=== PATIENT | male | born 1930 | race Caucasian/White ===

== ENCOUNTER 2016-10-16 05:38 | Emergency (ER) | payer OTHER ==
[2016-10-16 05:46] VITALS: BP 138/53; PULSE 62; RESP 14; TEMP 97.3; O2SAT 97
[2016-10-16] MEDS ORDERED: HYDROCODONE/APAP 5/325 TAB PO ONE (06:07)
--- NOTE | 2016-10-16 06:13 | EDPHY ---
H & P Stated Complaint: right upper toothache Time Seen by Provider: 10/16/16 05:59 HPI/ROS: Chief complaint toothache HPI: 86-year-old male presenting with toothache which started yesterday. Patient states he has had extensive dental work done in the past and this has pain in his right upper gum line. Pain radiates to beneath his right eye. Is about a 7/10. He did take some Tylenol yesterday afternoon and last evening. He does have a local dentist. It does hurt to chew. Has not had any temporal headaches. No skin rash. No numbness or tingling. No sharp shooting pains. Is described as a dull ache. No left-sided pain. No vision changes or tearing. No mandibular pain. He was scheduled to fly to [place] today. ROS: 10 point Review of Systems is negative except as noted in the HPI. Past medical history: Insomnia Medications: Gabapentin, melatonin Allergies: Horse serum Physical exam: Gen: Awake, Alert, No Distress HEENT: There is no temporal artery tenderness. There is no tenderness along the facial nerve. Nose: no rhinorrhea Eyes: PERRLA, EOMI, no injection, no discharge Mouth: Moist mucosa he has tenderness along the upper lateral gingival line at his 1st and 2nd premolars. There is no pointing. There is no area of fluctuance. There is no erythema. He has mild tooth tenderness to percussion. Neck: Supple, no JVD Skin: no rash Neuro: CN II-XII intact, Sensation grossly intact, Strength 5/5 in bilateral upper and lower extremities - Personal History Current Tetanus/Diphtheria Vaccine: Unsure Current Tetanus Diphtheria and Acellular Pertussis (TDAP): Unsure Tetanus Vaccine Date: 1971 - Medical/Surgical History Hx Asthma: No Hx Chronic Respiratory Disease: No Hx Diabetes: No Hx Cardiac Disease: Yes Hx Renal Disease: No Hx Cirrhosis: No Hx Alcoholism: No Hx HIV/AIDS: No Hx Splenectomy or Spleen Trauma: No Other PMH: CAD, aortic insufficiency, spinal stenosis, lami, bilat knee operations X5, carpal tunnel release, - Social History Smoking Status: Former smoker Constitutional: Initial Vital Signs Temperature (C) 36.3 C 10/16/16 05:44 Heart Rate 62 10/16/16 05:44 Respiratory Rate 14 10/16/16 05:44 Blood Pressure 138/53 H 02/27/17 05:44 O2 Sat (%) 97 10/16/16 05:44 O2 Delivery Mode Room Air Allergies/Adverse Reactions: CRAB CAKES Allergy (Severe, Uncoded 02/26/16 13:20) Anaphylaxis HORSE SERUM Allergy (Severe, Uncoded 02/26/16 13:20) Anaphylaxis Home Medications: Medication Instructions Recorded Aspirin [Aspirin 81mg (*)] 81 mg PO DAILY@08 05/24/15 Carvedilol [Coreg (*)] 6.25 mg PO BIDMEAL 05/24/15 Levothyroxine [Synthroid 150 mcg 150 mcg PO DAILY06 05/24/15 (*)] Multivitamins [Multivitamin (*)] 1 each PO DAILY 05/24/15 Pyridoxine HCl [Vitamin B-6 100 mg 100 mg PO DAILY 05/24/15 (*)] traZODone 10/16/16 Medical Decision Making ED Course/Re-evaluation: Patient is presenting with pain which I believe is dental in origin. He has got some tenderness along the going to on the upper right hand side with some tenderness to percussion of his tooth. There is no fluctuance. He does have a local dentist. I have offered to perform a dental block or a regional nerve block on him and he is declining this at this time. He would like some Vicodin. I will given this. I have also offered to start him on antibiotics. He would prefer to follow up with his dentist. They will call to make an appoint with her dentist later this morning. I have offered to give the mother resources further dentist but they feel that they can get in to see their dentist today will do so. Departure - Departure Disposition: Home, Routine, Self-Care Clinical Impression: Toothache Condition: Good Instructions: Toothache (ED) Additional Instructions: Follow up with your dentist today. Referrals: Home Sullivan MD [Primary Care Provider] - As per Instructions
== END 2016-10-16 06:20 | disposition home or self-care (01) ==
DX: K08.89 Other specified disorders of teeth and supporting structures (principal); I25.10 Atherosclerotic heart disease of native coronary artery without angina pectoris; Z87.891 Personal history of nicotine dependence; Z79.82 Long term (current) use of aspirin

== ENCOUNTER → 2016-11-07 | Outpatient (CLI) | payer OTHER | LOC: BHFA 14:00 | PROVIDERS: ATTEND Internal Medicine Cardiovascular Disease | DX: R00.1 Bradycardia, unspecified (principal); R55 Syncope and collapse ==

== ENCOUNTER → 2016-12-03 | Outpatient (CLI) | payer OTHER | LOC: FCPNEURO 23:11 | PROVIDERS: ATTEND Psychiatry & Neurology Sleep Medicine | DX: G47.33 Obstructive sleep apnea (adult) (pediatric) (principal); G47.31 Primary central sleep apnea ==

== ENCOUNTER → 2016-12-14 | Outpatient (CLI) | payer OTHER | LOC: FIMAGING 13:03 | PROVIDERS: ATTEND Family Medicine Geriatric Medicine | DX: R05 Cough (principal); R50.9 Fever, unspecified; I25.10 Atherosclerotic heart disease of native coronary artery without angina pectoris ==

== ENCOUNTER 2017-01-03 17:03 | Observation (INO) | payer OTHER ==
[2017-01-03] MEDS ORDERED: NS 1,000 ML IV ONE (17:11)
--- NOTE | 2017-01-03 17:11 | EDPHY ---
H & P HPI/ROS: HPI CHIEF COMPLAINT: Dizziness HISTORY OF PRESENT ILLNESS: This patient very pleasant 86-year-old male, significant past medical history for AFib, obstructive sleep apnea, carotid stenosis, TIA, spinal stenosis, no history of vertigo who presents to the emergency room by private vehicle with 6 hours of vertiginous type symptoms. It is worse when he lifts his head up and moves his head side to side. Also tells me gets very dizzy sensation with the room is spinning when he goes to ambulate. He 1st noted this around an hour before noon. The symptoms have persisted every time he goes to walk he gets dizzy. Denies chest pain or shortness of breath. Denies blurry vision double vision. Denies nausea. States with head position movements he gets very dizzy. No ringing in the ears. Denies headache. Denies focal weakness. Past Medical History: Spinal stenosis, obstructive sleep apnea, AFib, TIA, carotid disease, hyperlipidemia Past Surgical History: Carotid endarterectomy Social History: Denies daily use of drugs alcohol tobacco products, lives locally, at bedside Family History: Noncontributory ROS REVIEW OF SYSTEMS: A comprehensive 10 point review of systems is otherwise negative aside from elements mentioned in the history of present illness. Exam Constitutional appears well nontoxic, triage nursing summary reviewed, vital signs reviewed, awake/alert. Eyes normal conjunctivae and sclera, EOMI, PERRLA. HENT normal inspection, atraumatic, moist mucus membranes, no epistaxis, neck supple/ no meningismus, no raccoon eyes. Respiratory clear to auscultation bilaterally, normal breath sounds, no respiratory distress, no wheezing. Cardiovascular rate normal, regular rhythm, no murmur, no edema, distal pulses normal. Gastrointestinal soft, non-tender, no rebound, no guarding, normal bowel sounds, no distension, no pulsatile mass. Genitourinary no CVA tenderness. Musculoskeletal no midline vertebral tenderness, full range of motion, no calf swelling, no tenderness of extremities, no meningismus, good pulses, neurovascularly intact. Skin pink, warm, & dry, no rash, skin atraumatic. Neurologic with head positional changes he gets very dizzy. no focal neuro deficit, awake, alert and oriented x 3, AAOx3, moves all 4 extremities equally, motor intact, sensory intact, CN II-XII intact, normal cerebellar, normal vision , normal speech. Psychiatric normal mood/affect. Heme/Lymph/Immune no lymphadenopathy. 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 Re-evaluate. Rule out ACS, rule out stroke. Re-evaluation: EKG interpretation by me on record in CAPPTURE system. Impression time of EKG , this is sinus rhythm rate of 55 first-degree AV block with NV interval 220. Right bundle-branch block present. Otherwise no acute ischemic change on EKG specifically no ST elevation, ST depression or significant T-wave abnormalities. When compared to EKG 01/30/2016 very similar morphology. Right bundle-branch block present. And first-degree AV block. CT scan of the head without IV contrast . The results of the study are negative for acute stroke, bleed, subdural The study was read by Dr. Najera. I viewed the images myself on the PACS system. ED x-ray chest one view: Negative for acute cardiopulmonary disease. 1812: Had lengthy discussion with this patient and his recommend hospital admission for dizziness which is improved with IV fluids and meclizine however patient does have a positive troponin. He has no chest pain or shortness of breath. Chest x-ray and CT scan reviewed. Blood work reviewed. EKG shows no acute ischemia similar EKG compared to old EKG in January. No evidence of ACS. However given his age of 86 years of age positive troponin dizziness recommend hospital admission. Spoke with the hospitalist service Dr. Almendarez agrees to admit this patient. Source: Patient - Personal History Tetanus Vaccine Date: 1971 - Medical/Surgical History Hx Asthma: No Hx Chronic Respiratory Disease: No Hx Diabetes: No Hx Cardiac Disease: Yes Hx Renal Disease: No Hx Cirrhosis: No Hx Alcoholism: No Hx HIV/AIDS: No Hx Splenectomy or Spleen Trauma: No Other PMH: CAD, aortic insufficiency, spinal stenosis, lami, bilat knee operations X5, carpal tunnel release, - Social History Smoking Status: Former smoker Constitutional: Initial Vital Signs Temperature (C) 36.6 C 01/03/17 17:05 Heart Rate 52 L 01/03/17 17:05 Respiratory Rate 18 01/03/17 17:05 Blood Pressure 144/67 H 01/03/17 17:05 O2 Sat (%) 97 01/03/17 17:05 O2 Delivery Mode Room Air Allergies/Adverse Reactions: CRAB CAKES Allergy (Severe, Uncoded 01/03/17 17:12) Anaphylaxis HORSE SERUM Allergy (Severe, Uncoded 01/03/17 17:12) Anaphylaxis Home Medications: Medication Instructions Recorded Aspirin [Aspirin 81mg (*)] 81 mg PO DAILY@08 05/24/15 Carvedilol [Coreg (*)] 6.25 mg PO BIDMEAL 05/24/15 Levothyroxine [Synthroid 150 mcg 150 mcg PO DAILY06 05/24/15 (*)] traZODone 10/16/16 Melatonin [Melatonin 3 MG (*)] 3 mg PO HS 01/03/17 Medical Decision Making - Data Points Laboratory Results: Laboratory Results 01/03/17 17:20 01/03/17 01:11 01/03/17 01/03/17 01/03/17 17:20 01:11 01:11 WBC 5.17 10^3/uL 10^3/uL (3.80-9.50) RBC 4.41 10^6/uL 10^6/uL (4.40-6.38) Hgb 13.2 g/dL L g/dL (13.7-17.5) Hct 39.3 % L % (40.0-51.0) MCV 89.1 fL fL (81.5-99.8) MCH 29.9 pg pg (27.9-34.1) MCHC 33.6 g/dL g/dL (32.4-36.7) RDW 13.8 % % (11.5-15.2) Plt Count 215 10^3/uL 10^3/uL (150-400) MPV 8.9 fL fL (8.7-11.7) Neut % (Auto) 59.6 % % (39.3-74.2) Lymph % (Auto) 16.8 % % (15.0-45.0) [place] % (Auto) 11.0 % % (4.5-13.0) Eos % (Auto) 11.6 % H % (0.6-7.6) Baso % (Auto) 0.6 % % (0.3-1.7) Nucleat RBC Rel Count 0.0 % % (0.0-0.2) Absolute Neuts (auto) 3.08 10^3/uL 10^3/uL (1.70-6.50) Absolute Lymphs (auto) 0.87 10^3/uL L 10^3/uL (1.00-3.00) Absolute Monos (auto) 0.57 10^3/uL 10^3/uL (0.30-0.80) Absolute Eos (auto) 0.60 10^3/uL H 10^3/uL (0.03-0.40) Absolute Basos (auto) 0.03 10^3/uL 10^3/uL (0.02-0.10) Absolute Nucleated RBC 0.00 10^3/uL 10^3/uL (0-0.01) Immature Gran % 0.4 % % (0.0-1.1) Immature Gran # 0.02 10^3/uL 10^3/uL (0.00-0.10) PT 14.2 SEC SEC (12.0-15.0) INR 1.11 (0.83-1.16) APTT 29.4 SEC SEC (23.0-38.0) Sodium 139 mEq/L mEq/L (134-144) Potassium 5.1 mEq/L mEq/L (3.5-5.2) Chloride 104 mEq/L mEq/L (97-110) Carbon Dioxide 27 mEq/l mEq/l (22-31) Anion Gap 8 mEq/L mEq/L (8-16) BUN 17 mg/dL mg/dL (7-23) Creatinine 1.1 mg/dL mg/dL (0.7-1.3) Estimated GFR > 60 Glucose 110 mg/dL H mg/dL (70-100) Calcium 9.3 mg/dL mg/dL (8.5-10.4) Magnesium 2.1 mg/dL mg/dL (1.6-2.3) Total Bilirubin 1.0 mg/dL mg/dL (0.1-1.4) Conjugated Bilirubin 0.3 mg/dL mg/dL (0.0-0.5) Unconjugated Bilirubin 0.7 mg/dL mg/dL (0.0-1.1) AST 26 IU/L IU/L (17-59) ALT 33 IU/L IU/L (21-72) Alkaline Phosphatase 53 IU/L IU/L (38-126) Creatine Kinase 110 IU/L IU/L (0-224) CK-MB (CK-2) Fraction 2.88 ng/mL ng/mL (0-3.19) Troponin I 0.045 ng/mL H ng/mL (0-0.034) NT-Pro-B Natriuret Pep 441 pg/mL pg/mL (0-450) Total Protein 6.6 g/dL g/dL (6.3-8.2) Albumin 3.9 g/dL g/dL (3.5-5.0) Lipase 102.0 IU/L IU/L (23-300) Medications Given: Discontinued Medications Sodium Chloride (Ns) 1,000 mls @ 0 mls/hr IV ONCE ONE PRN Reason: Wide Open Stop: 01/03/17 17:12 Last Admin: 01/03/17 17:18 Dose: 1,000 mls Meclizine HCl (Meclizine Hcl) 25 mg PO EDNOW ONE Stop: 01/03/17 17:21 Last Admin: 01/03/17 17:25 Dose: 25 mg Departure - Departure Disposition: [facility] In[facility] Acute Clinical Impression: Dizziness, Troponin level elevated Condition: Fair Referrals: Home Sullivan MD [Primary Care Provider] - As per Instructions
--- NOTE | 2017-01-03 17:15 | CPEKG ---
Heart Rate: 55 RR Interval: 1091 P-R Interval: 220 QRSD Interval: 138 QT Interval: 492 QTC Interval: 471 P [place]: 33 QRS [place]: -13 T Wave [place]: 13 EKG Severity - ABNORMAL ECG - EKG Impression: SINUS RHYTHM EKG Impression: FIRST DEGREE AV BLOCK EKG Impression: RIGHT BUNDLE BRANCH BLOCK Electronically Signed By: Jorge Renteria 03-Jan-2017 21:25:52
[2017-01-03] MEDS ORDERED: MECLIZINE HCL 25 MG TAB PO ONE (17:20)
[2017-01-03 17:30] LABS: % IMMATURE GRANULYOCYTES 0.4 % (0.0-1.1); ABSOLUTE IMMATURE GRANULOCYTES 0.02 10^3/uL (0.00-0.10); ADD DIFF? NO; ADD MORPH? NO; ADD SCAN? NO; ATYPICAL LYMPHOCYTE FLAG 30 (0-99); FRAGMENT RBC FLAG 0 (0-99); HEMATOCRIT 39.3 % (40.0-51.0); HEMOGLOBIN 13.2 g/dL (13.7-17.5); LEFT SHIFT FLG 0 (0-99); LIPEMIA HEMOLYSIS FLAG 80 (0-99); MEAN CELL HEMOGLOBIN 29.9 pg (27.9-34.1); MEAN CELL HEMOGLOBIN CONCENTR. 33.6 g/dL (32.4-36.7); MEAN CELL VOLUME 89.1 fL (81.5-99.8); MEAN PLATELET VOLUME 8.9 fL (8.7-11.7); PLATELET CLUMPS FLAG 0 (0-99); PLATELET COUNT 215 10^3/uL (150-400); RED BLOOD CELL COUNT 4.41 10^6/uL (4.40-6.38); RED CELL DISTRIBUTION WIDTH 13.8 % (11.5-15.2)
[2017-01-03 17:38] LABS: INR 1.11 (0.83-1.16); PROTIME(PATIENT) 14.2 SEC (12.0-15.0)
[2017-01-03 17:39] LABS: ALANINE AMINOTRANSFERASE 33 IU/L (21-72); ALBUMIN 3.9 g/dL (3.5-5.0); ALKALINE PHOSPHATASE 53 IU/L (38-126); ANION GAP 8 mEq/L (8-16); APTT 29.4 SEC (23.0-38.0); ASPARTATE AMINOTRANSFERASE 26 IU/L (17-59); BILIRUBIN-CONJUGATED 0.3 mg/dL (0.0-0.5); BILIRUBIN-UNCONJUGATED 0.7 mg/dL (0.0-1.1); CALCIUM 9.3 mg/dL (8.5-10.4); CARBON DIOXIDE 27 mEq/l (22-31); CHLORIDE 104 mEq/L (97-110); CREATININE 1.1 mg/dL (0.7-1.3); GLOMERULAR FILTRATION RATE > 60; GLUCOSE 110 mg/dL (70-100); MAGNESIUM 2.1 mg/dL (1.6-2.3); POTASSIUM 5.1 mEq/L (3.5-5.2); SODIUM 139 mEq/L (134-144); TOTAL PROTEIN 6.6 g/dL (6.3-8.2)
[2017-01-03 17:51] LABS: CREATINE KINASE-MB FRACTION 2.88 ng/mL (0-3.19); TROPONIN I 0.045 ng/mL (0-0.034)
[2017-01-03] MEDS ORDERED: ONDANSETRON DISINTEGRATING 4 MG TAB PO PRN (18:41)
[2017-01-03] MEDS ORDERED: MECLIZINE HCL 25 MG TAB PO PRN (18:41)
[2017-01-03] MEDS ORDERED: ONDANSETRON 4 MG/2 ML VIAL IVP PRN (18:41)
[2017-01-03] MEDS ORDERED: ACETAMINOPHEN 325 MG TAB PO PRN (18:41)
--- NOTE | 2017-01-03 18:54 | PDGENHP ---
History and Physical - Chief Complaint dizzyness - History of Present Illness This patient is an 86-year-old male with a past medical history for AFib, obstructive sleep apnea, carotid stenosis, TIA, spinal stenosis, vertigo who has had vertigo like symptoms since 0800 this morning. Although he has had vertigo before, these sx's are worse and have lasted more than the typical few minutes which are his norm. The sx's were worse with head movement. He denies chest pain or shortness of breath. Denies blurry vision double vision. Denies nausea. States with head position movements he gets very dizzy. No ringing in the ears. Denies headache. Denies focal weakness. Denies palpitations or leg swelling. He does not report focal weakness He was given IVF and Meclizine in the E.D. with resolution of his sx's. Unfortunately, a troponin was indeterminate and we have been asked to admit for further w/u. Upon further questions, he reports intermittent dizziness and several near syncope events during the previous months. He also reports bradycardia and upon my review of his VS his HR is in the low 50's. He is on Carvedilol. His therapist physical is Dr. Srikanth Almendarez who he sees once yearly and has an appointment in February. A CT of the brain was no consistent with acute findings. EKG (personally reviewed) shows first degree AV block and RBBB which is chronic. A CXR ( personally reviewed) is unremarkable. Past Medical History: Spinal stenosis, obstructive sleep apnea, AFib, TIA, carotid disease, hyperlipidemia, cardiac stents x 1 15 years ago, Hypothyroidism , Insomnia Past Surgical History: Carotid endarterectomy, cardiac cath with stent placement Social History: Denies daily use of drugs alcohol or tobacco products, lives locally. Family History: Noncontributory History Information - Allergies/Home Medication List Allergies/Adverse Reactions: CRAB CAKES Allergy (Severe, Uncoded 01/03/17 17:12) Anaphylaxis HORSE SERUM Allergy (Severe, Uncoded 01/03/17 17:12) Anaphylaxis Home Medications: Aspirin [Aspirin 81mg (*)] 81 mg PO DAILY@08 05/24/15 [Last Taken 05/23/15] Carvedilol [Coreg (*)] 6.25 mg PO BIDMEAL 05/24/15 [Last Taken 06/15/15] Levothyroxine [Synthroid 150 mcg (*)] 150 mcg PO DAILY06 05/24/15 [Last Taken ] traZODone 10/16/16 [Last Taken Unknown] Melatonin [Melatonin 3 MG (*)] 3 mg PO HS 01/03/17 [Last Taken Unknown] I have personally reviewed and updated: medical history, social history, surgical history - Social History Smoking Status: Former smoker Review of Systems ROS: 10pt was reviewed & negative except for what was stated in HPI & below Physical Exam Temp Pulse Resp BP Pulse Ox 36.6 C 52 L 18 144/67 H 97 01/03/17 17:05 01/03/17 17:05 01/03/17 17:05 01/03/17 17:05 01/03/17 17:05 Constitutional: no apparent distress, appears nourished, not in pain Eyes: PERRL, EOMI Ears, Nose, Mouth, Throat: moist mucous membranes, poor dentition, No dry mucous membranes Cardiovascular: regular rate and rhythym, no murmur, rub, or gallop, No systolic murmur, No irregularly irregular, No JVD Respiratory: no respiratory distress, no rales or rhonchi, clear to auscultation , No reduced air movement Gastrointestinal: normoactive bowel sounds, soft, non-tender abdomen, no palpable masses, No tenderness Genitourinary: no bladder fullness Skin: warm, normal color Neurologic: AAOx3, sensation intact bilaterally, CN II-XII Intact, No weakness, No facial droop Psychiatric: interacting appropriately, not anxious, not encephalopathic Lab Data & Imaging Review 01/03/17 17:20 01/03/17 01:11 WBC 5.17 10^3/uL (3.80-9.50) 01/03/17 17:20 RBC 4.41 10^6/uL (4.40-6.38) 01/03/17 17:20 Hgb 13.2 g/dL (13.7-17.5) L 01/03/17 17:20 Hct 39.3 % (40.0-51.0) L 01/03/17 17:20 MCV 89.1 fL (81.5-99.8) 01/03/17 17:20 MCH 29.9 pg (27.9-34.1) 01/03/17 17:20 MCHC 33.6 g/dL (32.4-36.7) 01/03/17 17:20 RDW 13.8 % (11.5-15.2) 01/03/17 17:20 Plt Count 215 10^3/uL (150-400) 01/03/17 17:20 MPV 8.9 fL (8.7-11.7) 01/03/17 17:20 Neut % (Auto) 59.6 % (39.3-74.2) 01/03/17 17:20 Lymph % (Auto) 16.8 % (15.0-45.0) 01/03/17 17:20 [place] % (Auto) 11.0 % (4.5-13.0) 01/03/17 17:20 Eos % (Auto) 11.6 % (0.6-7.6) H 01/03/17 17:20 Baso % (Auto) 0.6 % (0.3-1.7) 01/03/17 17:20 Nucleat RBC Rel Count 0.0 % (0.0-0.2) 01/03/17 17:20 Absolute Neuts (auto) 3.08 10^3/uL (1.70-6.50) 01/03/17 17:20 Absolute Lymphs (auto) 0.87 10^3/uL (1.00-3.00) L 01/03/17 17:20 Absolute Monos (auto) 0.57 10^3/uL (0.30-0.80) 01/03/17 17:20 Absolute Eos (auto) 0.60 10^3/uL (0.03-0.40) H 01/03/17 17:20 Absolute Basos (auto) 0.03 10^3/uL (0.02-0.10) 01/03/17 17:20 Absolute Nucleated RBC 0.00 10^3/uL (0-0.01) 01/03/17 17:20 Immature Gran % 0.4 % (0.0-1.1) 01/03/17 17:20 Immature Gran # 0.02 10^3/uL (0.00-0.10) 01/03/17 17:20 PT 14.2 SEC (12.0-15.0) 01/03/17 01:11 INR 1.11 (0.83-1.16) 01/03/17 01:11 APTT 29.4 SEC (23.0-38.0) 01/03/17 01:11 Sodium 139 mEq/L (134-144) 01/03/17 01:11 Potassium 5.1 mEq/L (3.5-5.2) 01/03/17 01:11 Chloride 104 mEq/L (97-110) 01/03/17 01:11 Carbon Dioxide 27 mEq/l (22-31) 01/03/17 01:11 Anion Gap 8 mEq/L (8-16) 01/03/17 01:11 BUN 17 mg/dL (7-23) 01/03/17 01:11 Creatinine 1.1 mg/dL (0.7-1.3) 01/03/17 01:11 Estimated GFR > 60 01/03/17 01:11 Glucose 110 mg/dL (70-100) H 01/03/17 01:11 Calcium 9.3 mg/dL (8.5-10.4) 01/03/17 01:11 Magnesium 2.1 mg/dL (1.6-2.3) 01/03/17 01:11 Total Bilirubin 1.0 mg/dL (0.1-1.4) 01/03/17 01:11 Conjugated Bilirubin 0.3 mg/dL (0.0-0.5) 01/03/17 01:11 Unconjugated Bilirubin 0.7 mg/dL (0.0-1.1) 01/03/17 01:11 AST 26 IU/L (17-59) 01/03/17 01:11 ALT 33 IU/L (21-72) 01/03/17 01:11 Alkaline Phosphatase 53 IU/L (38-126) 01/03/17 01:11 Creatine Kinase 110 IU/L (0-224) 01/03/17 01:11 CK-MB (CK-2) Fraction 2.88 ng/mL (0-3.19) 01/03/17 01:11 Troponin I 0.045 ng/mL (0-0.034) H 01/03/17 01:11 NT-Pro-B Natriuret Pep 441 pg/mL (0-450) 01/03/17 01:11 Total Protein 6.6 g/dL (6.3-8.2) 01/03/17 01:11 Albumin 3.9 g/dL (3.5-5.0) 01/03/17 01:11 Lipase 102.0 IU/L (23-300) 01/03/17 01:11 Assessment & Plan Assessment: #Vertigo, likely BPV #?Dehydration, s/p IVF, likely resolved. Will hold off on additional fluid for now #Bradycardia in a pt with hx of Afib, chronically on Coreg #Indeterminate troponin with no chest pain #Insomnia #Hypothyroidism #[place], not on CPAP Plan: Admit serial trops, telemetry, TTE. He sees Dr. Almendarez with Cardiology. A formal consult has not been placed and he may need one. In regards to the Vertigo, this sounds like BPH and has resolved with IVF and Meclizine. It is, however, concerning, that he is having bradycardia and near syncope over the last few months and this could also be contributing to his sx' s earlier today. I will hold Carvedilol today and he will likely not need it going forward. He should be evaluated by Cardiology either here or as an outpatient. I do not suspect ACS. He does not have CP. No acute ischemic EKG changes He is not on chronic AC. He is on an Aspirin and this will be continued. check TSH Continue Melatonin and Trazodone. The Trazodone could have also made him dizzy, but this is least likely as he has been on this for many years. In either case he is requesting this tonight. PT/OT
[2017-01-03] MEDS ORDERED: MELATONIN 3 MG TAB PO SCH (21:00)
[2017-01-03] MEDS ORDERED: traZODone 50 MG TAB PO SCH (21:00)
[2017-01-04 04:20] VITALS: RESP 14; TEMP 97.9; O2SAT 94
[2017-01-04 05:01] LABS: % IMMATURE GRANULYOCYTES 0.4 % (0.0-1.1); ABSOLUTE IMMATURE GRANULOCYTES 0.02 10^3/uL (0.00-0.10); ADD DIFF? NO; ADD MORPH? NO; ADD SCAN? NO; ATYPICAL LYMPHOCYTE FLAG 0 (0-99); FRAGMENT RBC FLAG 0 (0-99); HEMATOCRIT 35.3 % (40.0-51.0); HEMOGLOBIN 11.8 g/dL (13.7-17.5); LEFT SHIFT FLG 0 (0-99); LIPEMIA HEMOLYSIS FLAG 80 (0-99); MEAN CELL HEMOGLOBIN 30.2 pg (27.9-34.1); MEAN CELL HEMOGLOBIN CONCENTR. 33.4 g/dL (32.4-36.7); MEAN CELL VOLUME 90.3 fL (81.5-99.8); MEAN PLATELET VOLUME 9.5 fL (8.7-11.7); PLATELET CLUMPS FLAG 0 (0-99); PLATELET COUNT 200 10^3/uL (150-400); RED BLOOD CELL COUNT 3.91 10^6/uL (4.40-6.38); RED CELL DISTRIBUTION WIDTH 13.9 % (11.5-15.2)
[2017-01-04 05:15] LABS: ANION GAP 8 mEq/L (8-16); CALCIUM 8.6 mg/dL (8.5-10.4); CARBON DIOXIDE 22 mEq/l (22-31); CHLORIDE 110 mEq/L (97-110); GLOMERULAR FILTRATION RATE > 60; GLUCOSE 94 mg/dL (70-100); POTASSIUM 4.3 mEq/L (3.5-5.2); SODIUM 140 mEq/L (134-144)
[2017-01-04] MEDS ORDERED: LEVOTHYROXINE 150 MCG TAB PO SCH (06:00)
[2017-01-04] MEDS ORDERED: ASPIRIN 81 MG CHEWABLE TAB PO SCH (08:00)
[2017-01-04 08:36] VITALS: BP 140/56; PULSE 50
--- NOTE | 2017-01-04 08:50 | CPEKG ---
Heart Rate: 52 RR Interval: 1154 P-R Interval: 228 QRSD Interval: 140 QT Interval: 504 QTC Interval: 469 P [place]: 50 QRS [place]: 62 T Wave [place]: 26 EKG Severity - ABNORMAL ECG - EKG Impression: SINUS RHYTHM EKG Impression: FIRST DEGREE AV BLOCK EKG Impression: RIGHT BUNDLE BRANCH BLOCK Electronically Signed By: Usha Wheeler 04-Jan-2017 12:08:40
[2017-01-04] MEDS ORDERED: DONEPEZIL HCL 5 MG TAB PO SCH (09:45)
--- NOTE | 2017-01-04 09:59 | PDDCSUM ---
Discharge Summary Discharge Summary: Dates of service 01/03-01/04/17 Discharge dx: # vertigo # elevated trop # a fib # bradycardia # marie # hypothyroid consultations/procedures: none Hospital course by problem # vertigo: consistent with BPPV by hx, resolved completely with meclizine # bradycardia: in setting of being on BB for a fib, this was held and rates still a bit low but improved # elevated trop: without chest pain or ecg changes, trop was flat and indeterminate, recommending f/u with cardiology which he already has scheduled in the coming weeks # a fib: bradycardic, held bb, f/u with cardiology # marie/hypothyroid: chronic, no change in mgmt Dc home F/u with PCP and cardiology > 35 min spent in dc more than half in face to face counseling and coordination fo care
--- NOTE | 2017-01-04 16:08 | ECHO ---
[id number] + + [address] : : [place] [address] : : [phone] + + Adult Echocardiographic Report + --+ :Name: YISEL SINGH MStudy Date: 01/04/2017 07:42 AM : : Hospital Admission Number: [id number] Location: 2 16: :: 1930 Gender: Male Height: 68 in : :Age: 86 yrs Race: WH Weight: 160 lb : :Reason For Study: Bradycardia : : BSA: 1.9 meters2 : + --+ MMode/2D Measurements \T\ Calculations IVSd: 0.96 cm LVIDd: 5.7 cm FS: 34.6 % Ao root diam: LVPWd: 0.96 cm LVIDs: 3.7 cm EDV(Teich): 4.0 cm 158.4 ml LA dimension: ESV(Teich): 4.0 cm 58.5 ml EF(Teich): 63.1 % LVLd ap4: 8.2 cm SV(MOD-sp4): EDV(MOD-sp4): 54.0 ml 76.0 ml LVLs ap4: 7.1 cm ESV(MOD-sp4): 22.0 ml EF(MOD-sp4): 71.1 % Normal Measurement Values: + + :LVIDd (3.5-5.7cm) IVSd (0.6-1.1cm) LVPWd (0.6-1.1cm) Aortic Root (2.0-3.7cm)Left Atrium (1.5-4.0cm): :LV Vol(d) (76-115ml) LV Vol(s) (29-48ml) Ejec Fraction (50-65%)PV Joce (0.6- 1.2m/s) TV Joce (0.4-1.0m/s) : :MV E Joce (0.8-1.0m/s)MV A Joce (0.3-1.0m/s)LVOT Joce (0.7-1.2m/s) Asc Ao Joce ( 0.9-1.8m/s) : + + Doppler Measurements \T\ Calculations MV E max joce: 79.0 cm/secAo V2 max: 116.2 cm/sec AI max joce: 464.9 cm/sec MV A max joce: 87.4 cm/secAo max P.4 mmHg AI max P.5 mmHg MV E/A: 0.90 AI dec slope: 211.7 cm/sec2 AI P1/2t: 643.3 msec Left Ventricle The left ventricle is mildly dilated. There is normal left ventricular wall thickness. Left ventricular systolic function is normal. Ejection Fraction = 65-70%. The left ventricular ejection fraction is calculated at 63.1 %. There is Doppler evidence for diastolic dysfunction. No regional wall motion abnormalities noted. Right Ventricle The right ventricle is normal in size and function. Atria The left atrial size is normal. Right atrial size is normal. Mitral Valve Calcified mitral apparatus. There is mild mitral regurgitation. Tricuspid Valve Normal tricuspid valve. There is trace tricuspid regurgitation. Aortic Valve The aortic valve is trileaflet. The aortic valve opens well. Mild AO calcification. There is no aortic stenosis. Moderate to severe aortic regurgitation. Pulmonic Valve The pulmonic valve is not well visualized. There is no pulmonic valvular regurgitation. Great Vessels The aortic root is normal size. Pericardium/Pleural There is no pericardial effusion. Conclusion A complete two-dimensional transthoracic echocardiogram was performed (2D, M-mode, Doppler and color flow Doppler). (1) Left ventricular systolic ejection fraction was normal (65-70%) - normal wall motion (2) No left ventricular hypertrophy - mild left ventricular dilation was noted (3) Diastolic dysfunction was present (4) Normal right ventriuclar size and function (5) Normal atrial dimensions (6) Mild mitral regurgitation with calcified mitral annulus (7) Trileaflet aortic valve with mild sclerosis, no stenosis. Moderate to severe aortic insufficiency was noted (8) Physiologic tricuspid regurgitation (9) Poor visualization of the pulmonic valve without insufficiency noted (10) No comparison echocardiograms. - given the LV dilation and the severity of the aortic insufficiency, would have patient set up with cardiology in the outpatient setting ([facility]). Final Reading Physician: Omero Cole signed on 01/04/2017 04:07 PM Ordering Physician: Jatin Grubbs Performed By: Lyndsey Multani RDCS
[2017-01-04] MEDS ORDERED: traZODone 50 MG TAB PO SCH (21:00)
== END 2017-01-04 11:10 | disposition home or self-care (01) ==
LOC: INTOOBSV 18:11 → F2W 20:20
PROVIDERS: ADMIT Family Medicine; ATTEND Internal Medicine
DX: R42 Dizziness and giddiness (principal); R79.89 Other specified abnormal findings of blood chemistry; I48.91 Unspecified atrial fibrillation; R00.1 Bradycardia, unspecified; G47.33 Obstructive sleep apnea (adult) (pediatric); E03.9 Hypothyroidism, unspecified; I44.0 Atrioventricular block, first degree; I45.19 Other right bundle-branch block; I25.10 Atherosclerotic heart disease of native coronary artery without angina pectoris; I35.9 Nonrheumatic aortic valve disorder, unspecified; M48.00 Spinal stenosis, site unspecified; G47.00 Insomnia, unspecified; Z87.891 Personal history of nicotine dependence; Z86.73 Personal history of transient ischemic attack (TIA), and cerebral infarction without residual deficits; Z95.5 Presence of coronary angioplasty implant and graft; Z79.83 Long term (current) use of bisphosphonates
CPT/HCPCS: 70450; 71010; 93005; 93306; 96360; 99285; G0378

== ENCOUNTER 2017-02-15 05:11 | Observation (INO) | payer OTHER ==
[2017-02-15] MEDS ORDERED: NS 1,000 ML IV ONE ×2 (05:22→05:49)
--- NOTE | 2017-02-15 05:22 | EDPHY ---
H & P Stated Complaint: unable to control shaking for past two hours; flu like symptoms x 4 days HPI/ROS: HPI CHIEF COMPLAINT: Rigors, chills, fever, recent illness for the past 3-4 days. HISTORY OF PRESENT ILLNESS: This patient very pleasant 86-year-old male, significant past medical history for spinal stenosis, obstructive sleep apnea, AFib, TIA and carotid endarterectomy with recent hospitalization here in December for dizziness and bradycardia. Presents to the emergency room with 4 days of illness he describes as a flu-like illness with generalized weakness, cough with congestion with denny sputum, nasal congestion, sore throat, and fever to 100.0 T-max. He presents emergency room early this morning for rigors and uncontrollable shaking and could not get warm. States this started approximately 3 hours ago he was trying to sleep in bed but could not stop shaking with rigors. He denies any chest pain headache, neck pain neck stiffness, denies any shortness of breath but does endorse productive cough with denny sputum. Denies urinary symptoms. Main complaint is generalized weakness, fever, rigors. Past Medical History: AFib, obstructive sleep apnea, spinal stenosis, bradycardia, TIA Past Surgical History: Carotid endarterectomy Social History: Denies daily use of drugs alcohol tobacco products, lives locally , at bedside Family History: Noncontributory ROS REVIEW OF SYSTEMS: A comprehensive 10 point review of systems is otherwise negative aside from elements mentioned in the history of present illness. Exam Constitutional appears nontoxic triage nursing summary reviewed, vital signs reviewed, awake/alert. Eyes normal conjunctivae and sclera, EOMI, PERRLA. HENT normal inspection, atraumatic, moist mucus membranes, no epistaxis, neck supple/ no meningismus, no raccoon eyes. Respiratory clear to auscultation bilaterally, normal breath sounds, no respiratory distress, no wheezing. Cardiovascular rate normal, regular rhythm, no murmur, no edema, distal pulses normal. Gastrointestinal soft, non-tender, no rebound, no guarding, normal bowel sounds, no distension, no pulsatile mass. Genitourinary no CVA tenderness. Musculoskeletal no midline vertebral tenderness, full range of motion, no calf swelling, no tenderness of extremities, no meningismus, good pulses, neurovascularly intact. Skin pink, warm, & dry, no rash, skin atraumatic. Neurologic awake, alert and oriented x 3, AAOx3, moves all 4 extremities equally, motor intact, sensory intact, CN II-XII intact, normal cerebellar, normal vision, normal speech. Psychiatric normal mood/affect. Heme/Lymph/Immune no lymphadenopathy. Differential Diagnosis: Includes but is not limited to in a particular order, infection, sepsis, bacteremia, pneumonia, urinary tract infection, electrolyte disturbance Medical Decision Making: Plan for this patient monitoring analyst, IV establishment, IV fluid bolus, check lactic acid, procalcitonin, blood cultures , chest x-ray, urinalysis, electrolytes. Gentle IV hydration. Re-evaluation: EKG interpretation by me on record in [facility] system. Impression time of EKG 5:33 a.m., this is sinus rhythm rate of 70 right bundle-branch block present. T-wave abnormalities noted V1 V2 V3. When I compare this to his old EKG dated 01/03/2017 it is similar morphology. T-wave abnormality in lead 3 more pronounced. ED x-ray chest two view: Negative for acute cardiopulmonary disease. I do not appreciate pneumonia. [id number]: This patient 86-year-old male with generalized weakness, rigors, chills subjective fever at home to 100.0. Recent illness for flu-like illness for the past 4 days. Not find anything acute here in the emergency room he does have an elevated lactic acid. Elevated procalcitonin. Chest x-ray does not show focal pneumonia. Urinalysis does not indicate infection. I think is reasonable given his age, generalized weakness, rigors to observe him today in the hospital. Blood cultures are pending. Spoke with the hospitalist service Dr. Sesay: Who has accepted admission. This time this patient is hemodynamically stable no acute distress. Feels better after 2 L normal saline. Repeat lactic has trended down from 3.2 to 1.9. Again no hypotension here, no fever. No evidence of severe end-organ damage. No evidence of severe sepsis. No evidence of sepsis. Will admit for observation for generalized weakness, rigors. Source: Patient - Personal History Current Tetanus/Diphtheria Vaccine: Yes Tetanus Vaccine Date: 1971 - Medical/Surgical History Hx Asthma: No Hx Chronic Respiratory Disease: No Hx Diabetes: No Hx Cardiac Disease: Yes Hx Renal Disease: No Hx Cirrhosis: No Hx Alcoholism: No Hx HIV/AIDS: No Hx Splenectomy or Spleen Trauma: No Other PMH: CAD, aortic insufficiency, spinal stenosis, lami, bilat knee operations X5, R carpal tunnel release, bilateral carotid endarterectomy 2014, TIA 2014 - Social History Smoking Status: Former smoker Constitutional: Initial Vital Signs Temperature (C) 36.7 C 02/15/17 05:12 Heart Rate 78 02/15/17 05:12 Respiratory Rate 20 02/15/17 05:12 Blood Pressure 172/64 H 02/15/17 05:12 O2 Sat (%) 97 02/15/17 05:12 O2 Delivery Mode Room Air Allergies/Adverse Reactions: CRAB CAKES Allergy (Severe, Uncoded 01/03/17 17:12) Anaphylaxis HORSE SERUM Allergy (Severe, Uncoded 01/03/17 17:12) Anaphylaxis Home Medications: Medication Instructions Recorded Aspirin [Aspirin 81mg (*)] 81 mg PO DAILY 05/24/15 Levothyroxine [Synthroid 150 mcg 150 mcg PO DAILY06 05/24/15 (*)] Donepezil HCl [Aricept 5 MG (*)] 5 mg PO DAILY 01/03/17 Herbals/Supplements -Info Only 1 ea PO DAILY 01/03/17 Melatonin [Melatonin 3 MG (*)] 3 mg PO HS 01/03/17 traZODone [traZODONE 50MG (*)] 50 mg PO HS 01/03/17 Medical Decision Making - Data Points Laboratory Results: Laboratory Results 02/15/17 05:25 02/15/17 05:25 02/15/17 02/15/17 02/15/17 06:34 05:43 05:30 WBC RBC Hgb Hct MCV MCH MCHC RDW Plt Count MPV Neut % (Auto) Lymph % (Auto) [place] % (Auto) Eos % (Auto) Baso % (Auto) Nucleat RBC Rel Count Absolute Neuts (auto) Absolute Lymphs (auto) Absolute Monos (auto) Absolute Eos (auto) Absolute Basos (auto) Absolute Nucleated RBC Immature Gran % Immature Gran # PT INR APTT VBG Lactic Acid 1.9 mmol/L D mmol/L (0.7-2.1) Sodium Potassium Chloride Carbon Dioxide Anion Gap BUN Creatinine Estimated GFR Glucose Calcium Total Bilirubin Conjugated Bilirubin Unconjugated Bilirubin AST ALT Alkaline Phosphatase Troponin I Total Protein Albumin Lipase Procalcitonin Urine Color YELLOW Urine Appearance CLEAR Urine pH 5.0 (5.0-7.5) Ur Specific [place] 1.013 (1.002-1.030) Urine Protein NEGATIVE (NEGATIVE) Urine Ketones NEGATIVE (NEGATIVE) Urine Blood 2+ H (NEGATIVE) Urine Nitrate NEGATIVE (NEGATIVE) Urine Bilirubin NEGATIVE (NEGATIVE) Urine Urobilinogen NEGATIVE EU EU (0.2-1.0) Ur Leukocyte Esterase NEGATIVE (NEGATIVE) Urine RBC 15-25 /hpf H /hpf (0-3) Urine WBC 5-10 /hpf H /hpf (0-3) Ur Epithelial Cells TRACE /lpf /lpf (NONE-1+) Urine Mucus TRACE /lpf /lpf (NONE-1+) Urine Glucose NEGATIVE (NEGATIVE) Influenza A & B (PCR) Pending Influenza A,B Rapid 02/15/17 02/15/17 02/15/17 05:30 05:25 05:25 WBC RBC Hgb Hct MCV MCH MCHC RDW Plt Count MPV Neut % (Auto) Lymph % (Auto) [place] % (Auto) Eos % (Auto) Baso % (Auto) Nucleat RBC Rel Count Absolute Neuts (auto) Absolute Lymphs (auto) Absolute Monos (auto) Absolute Eos (auto) Absolute Basos (auto) Absolute Nucleated RBC Immature Gran % Immature Gran # PT 14.9 SEC SEC (12.0-15.0) INR 1.17 H (0.83-1.16) APTT 32.9 SEC SEC (23.0-38.0) VBG Lactic Acid Sodium 139 mEq/L mEq/L (134-144) Potassium 4.6 mEq/L mEq/L (3.5-5.2) Chloride 103 mEq/L mEq/L (97-110) Carbon Dioxide 23 mEq/l mEq/l (22-31) Anion Gap 13 mEq/L mEq/L (8-16) BUN 22 mg/dL mg/dL (7-23) Creatinine 1.2 mg/dL mg/dL (0.7-1.3) Estimated GFR 58 Glucose 149 mg/dL H mg/dL (70-100) Calcium 9.4 mg/dL mg/dL (8.5-10.4) Total Bilirubin 1.2 mg/dL mg/dL (0.1-1.4) Conjugated Bilirubin 0.3 mg/dL mg/dL (0.0-0.5) Unconjugated Bilirubin 0.9 mg/dL mg/dL (0.0-1.1) AST 29 IU/L IU/L (17-59) ALT 33 IU/L IU/L (21-72) Alkaline Phosphatase 55 IU/L IU/L (38-126) Troponin I 0.028 ng/mL ng/mL (0-0.034) Total Protein 6.9 g/dL g/dL (6.3-8.2) Albumin 4.3 g/dL g/dL (3.5-5.0) Lipase 128.0 IU/L IU/L (23-300) Procalcitonin 0.13 ng/mL H ng/mL (0.02-0.10) Urine Color Urine Appearance Urine pH Ur Specific [place] Urine Protein Urine Ketones Urine Blood Urine Nitrate Urine Bilirubin Urine Urobilinogen Ur Leukocyte Esterase Urine RBC Urine WBC Ur Epithelial Cells Urine Mucus Urine Glucose Influenza A & B (PCR) Influenza A,B Rapid Pending 02/15/17 02/15/17 05:25 05:25 WBC 9.38 10^3/uL 10^3/uL (3.80-9.50) RBC 4.73 10^6/uL 10^6/uL (4.40-6.38) Hgb 14.3 g/dL g/dL (13.7-17.5) Hct 42.7 % % (40.0-51.0) MCV 90.3 fL fL (81.5-99.8) MCH 30.2 pg pg (27.9-34.1) MCHC 33.5 g/dL g/dL (32.4-36.7) RDW 14.6 % % (11.5-15.2) Plt Count 133 10^3/uL L 10^3/uL (150-400) MPV 9.7 fL fL (8.7-11.7) Neut % (Auto) 76.5 % H % (39.3-74.2) Lymph % (Auto) 7.0 % L % (15.0-45.0) [place] % (Auto) 11.0 % % (4.5-13.0) Eos % (Auto) 4.4 % % (0.6-7.6) Baso % (Auto) 0.5 % % (0.3-1.7) Nucleat RBC Rel Count 0.0 % % (0.0-0.2) Absolute Neuts (auto) 7.17 10^3/uL H 10^3/uL (1.70-6.50) Absolute Lymphs (auto) 0.66 10^3/uL L 10^3/uL (1.00-3.00) Absolute Monos (auto) 1.03 10^3/uL H 10^3/uL (0.30-0.80) Absolute Eos (auto) 0.41 10^3/uL H 10^3/uL (0.03-0.40) Absolute Basos (auto) 0.05 10^3/uL 10^3/uL (0.02-0.10) Absolute Nucleated RBC 0.00 10^3/uL 10^3/uL (0-0.01) Immature Gran % 0.6 % % (0.0-1.1) Immature Gran # 0.06 10^3/uL 10^3/uL (0.00-0.10) PT INR APTT VBG Lactic Acid 3.2 mmol/L H mmol/L (0.7-2.1) Sodium Potassium Chloride Carbon Dioxide Anion Gap BUN Creatinine Estimated GFR Glucose Calcium Total Bilirubin Conjugated Bilirubin Unconjugated Bilirubin AST ALT Alkaline Phosphatase Troponin I Total Protein Albumin Lipase Procalcitonin Urine Color Urine Appearance Urine pH Ur Specific [place] Urine Protein Urine Ketones Urine Blood Urine Nitrate Urine Bilirubin Urine Urobilinogen Ur Leukocyte Esterase Urine RBC Urine WBC Ur Epithelial Cells Urine Mucus Urine Glucose Influenza A & B (PCR) Influenza A,B Rapid Medications Given: Discontinued Medications Sodium Chloride (Ns) 1,000 mls @ 0 mls/hr IV ONCE ONE; Wide Open PRN Reason: Protocol Stop: 02/15/17 05:23 Last Admin: 02/15/17 05:35 Dose: 1,000 mls Sodium Chloride (Ns) 1,000 mls @ 0 mls/hr IV ONCE ONE PRN Reason: Wide Open Stop: 02/15/17 05:50 Last Admin: 02/15/17 05:57 Dose: 1,000 mls Departure - Departure Disposition: [facility] Inpatient Acute Clinical Impression: Generalized weakness, Rigors Condition: Fair Referrals: Home Sullivan MD [Primary Care Provider] - As per Instructions
--- NOTE | 2017-02-15 05:35 | CPEKG ---
Heart Rate: 70 RR Interval: 857 P-R Interval: 216 QRSD Interval: 132 QT Interval: 436 QTC Interval: 471 P [place]: 21 QRS [place]: 10 T Wave [place]: 10 EKG Severity - ABNORMAL ECG - EKG Impression: SINUS RHYTHM EKG Impression: RIGHT BUNDLE BRANCH BLOCK EKG Impression: FIRST DEGREE AVB Electronically Signed By: Joey Morris 16-Feb-2017 09:24:31
[2017-02-15 05:36] LABS: % IMMATURE GRANULYOCYTES 0.6 % (0.0-1.1); ABSOLUTE IMMATURE GRANULOCYTES 0.06 10^3/uL (0.00-0.10); ADD DIFF? NO; ADD MORPH? NO; ADD SCAN? NO; ATYPICAL LYMPHOCYTE FLAG 0 (0-99); FRAGMENT RBC FLAG 0 (0-99); HEMATOCRIT 42.7 % (40.0-51.0); HEMOGLOBIN 14.3 g/dL (13.7-17.5); LEFT SHIFT FLG 20 (0-99); LIPEMIA HEMOLYSIS FLAG 80 (0-99); MEAN CELL HEMOGLOBIN 30.2 pg (27.9-34.1); MEAN CELL HEMOGLOBIN CONCENTR. 33.5 g/dL (32.4-36.7); MEAN CELL VOLUME 90.3 fL (81.5-99.8); MEAN PLATELET VOLUME 9.7 fL (8.7-11.7); PLATELET CLUMPS FLAG 20 (0-99); PLATELET COUNT 133 10^3/uL (150-400); RED BLOOD CELL COUNT 4.73 10^6/uL (4.40-6.38); RED CELL DISTRIBUTION WIDTH 14.6 % (11.5-15.2)
[2017-02-15 05:45] LABS: INR 1.17 (0.83-1.16); PROTIME(PATIENT) 14.9 SEC (12.0-15.0)
[2017-02-15 05:46] LABS: APTT 32.9 SEC (23.0-38.0)
[2017-02-15 05:49] LABS: COLOR YELLOW; LEUKOCYTE ESTERASE,URINE NEGATIVE (NEGATIVE); NITRITE,URINE NEGATIVE (NEGATIVE)
[2017-02-15 05:51] LABS: ALANINE AMINOTRANSFERASE 33 IU/L (21-72); ALBUMIN 4.3 g/dL (3.5-5.0); ALKALINE PHOSPHATASE 55 IU/L (38-126); ANION GAP 13 mEq/L (8-16); ASPARTATE AMINOTRANSFERASE 29 IU/L (17-59); BILIRUBIN,TOTAL 1.2 mg/dL (0.1-1.4); BILIRUBIN-CONJUGATED 0.3 mg/dL (0.0-0.5); BILIRUBIN-UNCONJUGATED 0.9 mg/dL (0.0-1.1); CALCIUM 9.4 mg/dL (8.5-10.4); CARBON DIOXIDE 23 mEq/l (22-31); CHLORIDE 103 mEq/L (97-110); CREATININE 1.2 mg/dL (0.7-1.3); GLOMERULAR FILTRATION RATE 58; GLUCOSE 149 mg/dL (70-100); POTASSIUM 4.6 mEq/L (3.5-5.2); SODIUM 139 mEq/L (134-144); TOTAL PROTEIN 6.9 g/dL (6.3-8.2)
[2017-02-15 05:53] LABS: MUCUS TRACE /lpf (NONE-1+); RBC,URINE 15-25 /hpf (0-3)
[2017-02-15 06:02] LABS: TROPONIN I 0.028 ng/mL (0-0.034)
[2017-02-15 06:15] LABS: PROCALCITONIN 0.13 ng/mL (0.02-0.10)
[2017-02-15] MEDS ORDERED: ACETAMINOPHEN 325 MG TAB PO PRN (09:35)
[2017-02-15] MEDS ORDERED: ONDANSETRON 4 MG/2 ML VIAL IVP PRN (09:35)
[2017-02-15] MEDS ORDERED: NS 1,000 ML IV SCH (09:45)
[2017-02-15] MEDS ORDERED: IPRATROPIUM/ALBUTEROL 3 ML DEYVIAL IH PRN (11:19)
--- NOTE | 2017-02-15 12:09 | GHP ---
[f rep st] HISTORY AND PHYSICAL DATE OF ADMISSION: 02/15/2017 CHIEF COMPLAINT: Chills. HISTORY: The patient is an 86-year-old male, who has had a flu-like illness for 4 days with cough a nd congestion with a little bit of grayish sputum. He has been feeling weak. He has had a hoarse v oice and sore throat. He had a low-grade fever a couple days ago to 100. He had the flu in August and it feels just like that, feels like he has been hit by a bus. He woke up at 3 o'clock this morning and was shaking uncontrollably, and so came to the emergency ro om. PAST MEDICAL HISTORY: 1. Atrial fibrillation. 2. Obstructive sleep apnea. 3. Hypothyroidism. 4. Peripheral vascular disease status post carotid endarterectomy. 5. TIA. 6. Spinal stenosis. 7. Coronary artery disease, status post stent. MEDICATIONS: Please see computer record for full detailed list. ALLERGIES: To crab and horse serum. SOCIAL HISTORY: Quit smoking in the late 1950s. He lives alone but he does have a significant othe r although they do not live together, minimal alcohol. REVIEW OF SYSTEMS: Complete review of systems obtained. Review of systems negative regarding const itutional, HEENT, GI, pulmonary, cardiovascular, , hematology, skin, muscular, endocrine, psychiat albert, except for positives and negatives as noted in HPI. FAMILY HISTORY: Reviewed and noncontributory to presenting complaint. PHYSICAL EXAMINATION: GENERAL: Well-developed, well-nourished male, in no acute distress. VITAL S IGNS: Temperature is 36.8, pulse 64, blood pressure 147/65, saturating 95% on room air. EYE EXAMIN ATION: Normal conjunctivae. Pupils equal and reactive to light. ENT: Normal ears and nose. Hear ing intact. Normal teeth. Oropharynx moist. NECK: Trachea midline. No thyromegaly. CHEST: Nor mal effort. LUNGS: Clear to auscultation bilaterally. CARDIOVASCULAR: Regular rate and rhythm. No murmur. No lower extremity edema. ABDOMEN: Soft, nontender. No hepatosplenomegaly. SKIN: Wa rm, dry, intact. No rash. MUSCULOSKELETAL: No cyanosis or clubbing. Strength 5/5 upper and lower extremities. NEURO: Cranial nerves intact, normal sensation to light touch. PSYCH ASSESSMENT: A lert and oriented x3. Normal affect. Normal judgment and insight. Normal memory. LABORATORY DATA: White count 9.38, hematocrit 42.7, platelets 133. Sodium 139, potassium 4.6, chlo ride 103, bicarb 23, BUN 22, creatinine 1.2, glucose 149, procalcitonin 0.13, lactate 3.2 initially, now down to 1.9. Urinalysis shows 5-10 white blood cells. Influenza negative. Respiratory, PCR i s positive for rhinovirus versus enterovirus. Chest x-ray is negative for pneumonia. EKG viewed by me. My personal interpretation is normal sinus rhythm with right bundle branch block but no acute ischemia. ASSESSMENT/PLAN: 1. Fever and chills. I suspect a viral infection. He is PCR positive for rhinovirus versus entero virus. I doubt bacterial super infection. This is evidenced by his normal white blood cell count, relatively normal procalcitonin and lack of infiltrate on chest x-ray. We will hold off on any anti biotics, will hydrate with IV fluids. Will monitor blood cultures. We will check for strep throat. 2. Dehydration with lactate elevation. This has already improved with IV fluid hydration. 3. Atrial fibrillation. Continue aspirin. 4. Peripheral vascular disease and coronary artery disease with previous coronary stent. He is mikayla lly on minimal medical management for this condition but stable so will not initiate anything at thi s time. CODE STATUS: DNR. ADMISSION STATUS: Will admit to observation. He is very motivated for hospital discharge later tod ay. Will have PT/OT evaluate him for home safety. I will re-evaluate him later today to see whethe r or not a late discharge today is reasonable. DVT PROPHYLAXIS: He is high risk. Will place him on subcutaneous Lovenox. /[id number]/MODL
[2017-02-15 12:20] VITALS: BP 121/58; TEMP 98.5
[2017-02-15 13:32] VITALS: PULSE 64; RESP 14; O2SAT 94
--- NOTE | 2017-02-15 18:36 | GDS ---
[f rep st] DISCHARGE SUMMARY DISCHARGE DIAGNOSES: 1. Viral bronchitis, rhinovirus versus enterovirus. 2. Dehydration with lactic acid elevation. 3. Atrial fibrillation. 4. Peripheral vascular disease and coronary artery disease, status post previous stent. HISTORY: The patient is an 86-year-old male who presents with 4 days of flu-like illness. He prese nted to the hospital when he developed acute chills in the middle of the night. His viral PCR is po sitive for rhinovirus versus enterovirus. There was no evidence of any bacterial superinfection. H e had normal white blood cells, normal procalcitonin, and did not have any infiltrate on chest x-ray . He had a sore throat, which was checked for strep and was negative. He was dehydrated and did small ve a lactic acid elevation, which resolved with IV fluids. He rapidly improved and was able to disc harge home. He ambulated well with PT, OT. DISCHARGE MEDICATIONS: Please see computerized record for full detailed list. There are no new med ications given at the time of hospital discharge. DISCHARGE INSTRUCTIONS: Follow up with Primary Care. /[id number]/MODL
[2017-02-15] MEDS ORDERED: MELATONIN 3 MG TAB PO SCH (21:00)
[2017-02-15] MEDS ORDERED: traZODone 50 MG TAB PO SCH (21:00)
[2017-02-15] MEDS ORDERED: ASPIRIN 81 MG CHEWABLE TAB PO SCH (21:00)
[2017-02-16] MEDS ORDERED: LEVOTHYROXINE 150 MCG TAB PO SCH (06:00)
[2017-02-16] MEDS ORDERED: DONEPEZIL HCL 5 MG TAB PO SCH (09:00)
[2017-02-16] MEDS ORDERED: ENOXAPARIN 40 MG/0.4 ML SYR SC SCH (09:00)
== END 2017-02-15 15:54 | disposition home or self-care (01) ==
LOC: F3E 08:18
PROVIDERS: ADMIT Internal Medicine; ATTEND Internal Medicine
DX: J20.8 Acute bronchitis due to other specified organisms (principal); E86.0 Dehydration; I48.91 Unspecified atrial fibrillation; I25.10 Atherosclerotic heart disease of native coronary artery without angina pectoris; I73.9 Peripheral vascular disease, unspecified; G47.33 Obstructive sleep apnea (adult) (pediatric); E03.9 Hypothyroidism, unspecified; Z95.5 Presence of coronary angioplasty implant and graft
CPT/HCPCS: 71020; 93005; 97161; G0378; G8978; G8979; G8980

== ENCOUNTER → 2017-02-24 | Outpatient (CLI) | payer OTHER | LOC: FCPNEURO 21:30 | PROVIDERS: ATTEND Psychiatry & Neurology Sleep Medicine | DX: G47.33 Obstructive sleep apnea (adult) (pediatric) (principal); G47.31 Primary central sleep apnea; G47.61 Periodic limb movement disorder ==

== ENCOUNTER 2017-05-31 08:27 | Day surgery (SDC) | payer OTHER ==
--- NOTE | 2017-05-30 18:04 | GHP ---
[f rep st] PREOP HISTORY AND PHYSICAL DATE OF ADMISSION: 05/31/2017 ADMISSION DIAGNOSIS: BPH with urinary obstruction. HISTORY OF PRESENT ILLNESS: This is an 86-year-old gentleman who has significant BPH with bladder ou tlet obstruction. He has had an AUA score total of 26 and quality of life score of 5 which is unhapp y and he has had a cystoscopy that revealed intravesical lobe of the prostate and trabeculated bladde r. He has had some memory loss and is on Aricept for that. He has also had urge and frequency preop eratively that persisted postop. He has had a transrectal ultrasound of the prostate and revealed si gnificant BPH. He has had a urodynamic study that shows a maximum flow of 11.4 mL per second, averag e flow of 5.4 mL per second, and bladder volume was 297 mL and he appears to be obstructed in nature. At the present time he was admitted for a GreenLight photovaporization of the prostate for his BPH. PAST SURGERIES: Back surgery, knee surgery, and vasectomy. PAST MEDICAL HISTORY: He has had BPH, urge frequency. MEDICATIONS: Include aspirin, Donepezil, levothyroxine, Rapaflo, trazodone, and in the past he has h ad Aricept. FAMILY HISTORY: Positive for lung cancer. SOCIAL HISTORY: Moderate alcohol consumption. Former smoker. REVIEW OF SYSTEMS: Negative cardiac, respiratory, GI and endocrine. PHYSICAL EXAMINATION: VITAL SIGNS: Stable. CHEST: Clear. HEART: Regular rate and rhythm. ABDOM EN: Normal, no organomegaly, rebound or guarding. LOWER EXTREMITIES: Normal. At the present time, he is admitted for GreenLight photovaporization of the prostate. Indications, c omplications and options discussed. Written and verbal consent were obtained. He was admitted for t he above procedure. Copy requested to: Dr. Leon /[id number]/MODL
--- NOTE | 2017-05-31 07:39 | PDHPUP ---
History & Physical Update H&P update statement: This history and physical update is based on an assessment of the patient which was completed after admission or registration (within 24 hours), but prior to the surgery/procedure. H&P update: H&P reviewed & patient examined, no change in patient's condition since H&P completed
[~2017-05-31 08:27] MED LIST: ceFAZolin 2 GM/DEXTROSE 100 ML IV ONE
[2017-05-31 09:29] VITALS: PULSE 52
[2017-05-31] MEDS ORDERED: LIDOCAINE 2% JELLY 20 ML (UROJECT) ONE (10:59)
[2017-05-31] MEDS ORDERED: CEFAZOLIN 2 GM/DEXTROSE/100 ML BAG IV ONE (11:04)
--- NOTE | 2017-05-31 11:04 | PDANEPAE ---
ANE History of Present Illness here for turp ANE Past Medical History - Cardiovascular History Hx Hypertension: No Hx Arrhythmias: Yes Hx Chest Pain: No Hx Coronary Artery / Peripheral Vascular Disease: No Hx CHF / Valvular Disease: Yes Hx Palpitations: No Cardiovascular History Comment: CARDIAC STENT 2001, HX OF HYPERCHOLESTEREMIA.Leaky ventricle. Denies C.P, SOB. - Pulmonary History Hx COPD: No Hx Asthma/Reactive Airway Disease: No Hx Recent Upper Respiratory Infection: No Hx Oxygen in Use at Home: No Hx Sleep Apnea: Yes Sleep Apnea Screening Result - Last Documented: Positive Pulmonary History Comment: diagnosed w/ISRAEL- will be fitted w/CPAP. QUIT SMOKING 1956 - Neurologic History Hx Cerebrovascular Accident: No Hx Seizures: No Hx Dementia: No Neurologic History Comment: TIA 05/25/15 during endartarectomy surgery- pt stated "they did both carotids the same day". - Endocrine History Hx Diabetes: No Endocrine History Comment: HYPOTHYROID-med - Renal History Hx Renal Disorders: Yes Renal History Comment: BPH w/urinary obstruction,retention. 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 - Congenital Disorder History Hx Congenital Disorders: No - GI History Hx Gastrointestinal Disorders: Yes Gastrointestinal History Comment: GERD - Other Health History Other Health History: OSTEOARTHRITIS. Removable upper and lower bridges, removable - Chronic Pain History Chronic Pain: No - Surgical History Prior Surgeries: RIGHT TOTAL KNEE 07/02,Lumbar lami., CORTISONE INJECTIONS, CARPAL TUNNEL RELEASE, CARDIAC STENT-2001. R carotid endartorectomy 05/25/15 ANE Review of Systems Review of systems is: negative Review of Systems: - Exercise capacity Exercise capacity: >=4 METS METS (RN): 4 METS ANE Patient History - Allergies Allergies/Adverse Reactions: CRAB CAKES Allergy (Severe, Uncoded 01/03/17 17:12) Anaphylaxis HORSE SERUM Allergy (Severe, Uncoded 01/03/17 17:12) Anaphylaxis - Home Medications Home medications: home medication list seen and reviewed Home Medications: Aspirin [Aspirin 81mg (*)] 81 mg PO HS 05/24/15 [Last Taken 05/30/17 10:00] Levothyroxine [Synthroid 150 mcg (*)] 150 mcg PO DAILY06 05/24/15 [Last Taken 10:00] Donepezil HCl [Aricept 5 MG (*)] 5 mg PO DAILY 01/03/17 [Last Taken 05/30/17 10: 00] Prostate Support 03/12/17 [Last Taken Unknown] - NPO status NPO Status: no food or drink >8 hours NPO Since - Liquids (Date): 05/30/17 NPO Since - Liquids (Time): 22:00 NPO Since - Solids (Date): 05/30/17 NPO Since - Solids (Time): 20:00 - Anes Hx Anes Hx: no prior problems - Smoking Hx Smoking Status: Former smoker - Family Anes Hx Family Hx Anesthesia Complications: NONE ANE Labs/Vital Signs - Vital Signs Blood Pressure: 152/61 Heart Rate: 52 Respiratory Rate: 20 O2 Sat (%): 97 Height: 172.72 cm Weight: 72.575 kg ANE Physical Exam - Airway Neck exam: FROM Mallampati Score: Class 1 Mouth exam: normal dental/mouth exam - Pulmonary Pulmonary: no respiratory distress - Cardiovascular Cardiovascular: regular rate and rhythym - ASA Status ASA Status: III ANE Anesthesia Plan Anesthesia Plan: GA w LMA
[2017-05-31] MEDS ORDERED: fentaNYL 100 MCG/2 ML INJ ONE (11:13)
[2017-05-31] MEDS ORDERED: PROPOFOL/EMULSION 500 MG/50 ML BOTTLE IV ONE (11:15)
[2017-05-31] MEDS ORDERED: fentaNYL 100 MCG/2 ML INJ IVP PRN (11:51)
[2017-05-31] MEDS ORDERED: HYDROmorphONE/DILAUDID 1 MG/ML INJ IVP PRN (11:51)
[2017-05-31] MEDS ORDERED: ALBUTEROL 3 ML DEYVIAL IH PRN (11:51)
[2017-05-31] MEDS ORDERED: NALOXONE HCL 0.4 MG/ML INJ IVP PRN (11:51)
[2017-05-31 13:12] VITALS: TEMP 97.5
--- NOTE | 2017-05-31 13:17 | GOP ---
[f rep st] OPERATIVE REPORT DATE OF OPERATION: 05/31/2017 SURGEON: David Ramires MD PREOPERATIVE DIAGNOSIS: Benign prostatic hypertrophy with urinary obstruction. POSTOPERATIVE DIAGNOSIS: Benign prostatic hypertrophy with urinary obstruction. PROCEDURE PERFORMED: GreenLight photovaporization of the prostate. FINDINGS: SPECIMENS: None. ESTIMATED BLOOD LOSS: Less than 100. DESCRIPTION OF PROCEDURE: After appropriate time-out, his meatus was dilated to 30-Italian and then t he resectoscope element was passed into the bladder. He had an extremely tight bladder neck and elev ated bladder neck and intravesical lobe of the prostate. I was able to get into the bladder. He had no tumors, stones or foreign bodies. He had trabeculation of the bladder. Then, at that point, wit h an XPS fiber set at 80 lima, I made a channel to the right and left of the intravesical lobe proxi mal to the verumontanum and then was able to vaporize the intravesical lobe. We used a mode of 100 w atts at 40 pulses, 13 minutes 30 seconds of laser time with that. So, the right lateral lobe and rig ht portion of the posterior lobe were vaporized. Left lateral lobe left portion of posterior lobe we re vaporized. Verumontanum and external sphincter approximated at the midline. Bladder neck was ope n. The bladder was normal. Ureteral orifices preserved. A total of 88,292 joules utilized, 16 wendy brynn of total laser time. At the end of the procedure, Uro-jet placed in the urethra after removing t he scope. With a coude maneuver, he had an excellent flow of urine. Then, a 3-way Maguire catheter pl aced, 30 cc balloon inflated. Urine was clear. He will be discharged home with a catheter, will have him remove it Sunday morning at home. COMPLICATIONS: None. /[id number]/MODL
[2017-05-31 14:10] VITALS: BP 143/58; RESP 18; O2SAT 100
== END 2017-05-31 14:50 | disposition home or self-care (01) ==
LOC: FSGY 08:27
PROVIDERS: ATTEND Specialist
PROC: 0V508ZZ Destruction of Prostate, Via Natural or Artificial Opening Endoscopic (ICD-10-PCS; principal; 2017-05-31 10:00)
PROC: 0W3R8ZZ Control Bleeding in Genitourinary Tract, Via Natural or Artificial Opening Endoscopic (ICD-10-PCS; principal; 2017-05-31 10:00)
DX: N40.1 Benign prostatic hyperplasia with lower urinary tract symptoms (principal); R35.0 Frequency of micturition; R41.3 Other amnesia; G47.33 Obstructive sleep apnea (adult) (pediatric); E78.00 Pure hypercholesterolemia, unspecified; E03.9 Hypothyroidism, unspecified; K21.9 Gastro-esophageal reflux disease without esophagitis; Z87.891 Personal history of nicotine dependence; Z95.5 Presence of coronary angioplasty implant and graft; Z96.651 Presence of right artificial knee joint; Z85.828 Personal history of other malignant neoplasm of skin
CPT/HCPCS: J0690; J2704; J3010

== ENCOUNTER → 2017-06-25 | Outpatient (CLI) | payer OTHER | LOC: FIMAGING 13:28 | PROVIDERS: ATTEND Family Medicine Geriatric Medicine | DX: Z13.820 Encounter for screening for osteoporosis (principal); M85.80 Other specified disorders of bone density and structure, unspecified site; E07.9 Disorder of thyroid, unspecified ==

== ENCOUNTER → 2017-08-25 | Outpatient (CLI) | payer OTHER | LOC: FIMAGING 13:14 | PROVIDERS: ATTEND Family Medicine Geriatric Medicine | DX: M25.521 Pain in right elbow (principal) ==

== ENCOUNTER 2017-11-20 06:45 | Day surgery (SDC) | payer OTHER ==
[2017-11-20] MEDS ORDERED: LIDOCAINE 1% 300 MG/30 ML SDV ONE (07:14)
[2017-11-20] MEDS ORDERED: BACITRACIN 50,000 UNITS/10 ML SYR IRR ONE (07:15)
[2017-11-20] MEDS ORDERED: POLYMYXIN B SULFATE 500,000 UNIT/10 ML SYR IRR ONE (07:15)
[2017-11-20] MEDS ORDERED: BUPIVACAINE 0.5% 30 ML SDV ONE (07:15)
[2017-11-20] MEDS ORDERED: LIDOCAINE 1% 2 ML INJ ONE (07:40)
[2017-11-20] MEDS ORDERED: LR 1,000 ML IV ONE (07:50)
[2017-11-20] MEDS ORDERED: ceFAZolin 2 GM/SWFI 2 GM/20 ML SYR IVP ONE (07:50)
[2017-11-20] MEDS ORDERED: LIDOCAINE 1% 2 ML INJ ID PRN (07:50)
--- NOTE | 2017-11-20 07:51 | PDHPUP ---
History & Physical Update H&P update statement: This history and physical update is based on an assessment of the patient which was completed after admission or registration (within 24 hours), but prior to the surgery/procedure. RRR CTAB H&P update: no change in patient's condition since H&P completed
--- NOTE | 2017-11-20 08:08 | PDANEPAE ---
ANE History of Present Illness 87 yo male with tear in R elbow extensor tendon. ANE Past Medical History - Cardiovascular History Hx Hypertension: No Hx Arrhythmias: No Hx Chest Pain: No Hx Coronary Artery / Peripheral Vascular Disease: Yes Hx CHF / Valvular Disease: No Hx Palpitations: No Cardiovascular History Comment: CARDIAC STENT 2004 Denies C.P, SOB. - Pulmonary History Hx COPD: No Hx Asthma/Reactive Airway Disease: No Hx Recent Upper Respiratory Infection: No Hx Oxygen in Use at Home: No Hx Sleep Apnea: Yes Sleep Apnea Screening Result - Last Documented: Positive Pulmonary History Comment: diagnosed w/[facility]- will be fitted w/CPAP soon. QUIT SMOKING 1956 - Neurologic History Hx Cerebrovascular Accident: Yes Hx Seizures: No Hx Dementia: No Neurologic History Comment: TIA 05/25/15 during endartarectomy surgery- pt stated "they did both carotids the same day". - Endocrine History Hx Diabetes: No Hypothyroid: Yes Hyperthyroid: No Obesity: no Endocrine History Comment: HYPOTHYROID-med - Renal History Hx Renal Disorders: No Renal History Comment: BPH w/urinary obstruction,retention. 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 lung cancer. - Congenital Disorder History Hx Congenital Disorders: No - GI History GERD: moderate Hx Gastrointestinal Disorders: Yes Gastrointestinal History Comment: GERD,diverticulitis - Other Health History Other Health History: OSTEOARTHRITIS. Removable upper and lower bridges, removable. [place] - Chronic Pain History Chronic Pain: No - Surgical History Prior Surgeries: RIGHT TOTAL KNEE 07/02,Lumbar lami., CORTISONE INJECTIONS, CARPAL TUNNEL RELEASE, CARDIAC STENT-2004. bilat carotid endartorectomy . greenlight prostate repair ANE Review of Systems Review of Systems: - Exercise capacity METS (RN): 4 METS - Systems Constitutional: Reports: no symptoms Cardiac: Reports: no symptoms Respiratory: Reports: no symptoms ANE Patient History - Allergies Allergies/Adverse Reactions: CRAB CAKES Allergy (Severe, Uncoded 01/03/17 17:12) Anaphylaxis HORSE SERUM Allergy (Severe, Uncoded 01/03/17 17:12) Anaphylaxis - Home Medications Home Medications: RX: Aspirin [Aspirin 81mg (*)] 05/24/15 [Last Taken 05/30/17 10:00] RX: Levothyroxine [Synthroid 150 mcg (*)] 05/24/15 [Last Taken 05/30/17 10:00] RX: Donepezil HCl [Aricept 5 MG (*)] 01/03/17 [Last Taken 05/30/17 10:00] Prostate Support 03/12/17 [Last Taken Unknown] Memantine HCl 11/09/17 [Last Taken Unknown] Trazodone HCl 11/09/17 [Last Taken Unknown] Imodium 2 mg (*) 11/20/17 [Last Taken 11/20/17 06:30] Mirabegron [Myrbetriq] 11/20/17 [Last Taken 11/20/17 06:30] - NPO status NPO Since - Liquids (Date): 11/20/17 NPO Since - Liquids (Time): 06:00 (sips of water with meds) NPO Since - Solids (Date): 11/19/17 - Anes Hx Anes Hx: no prior problems - Smoking Hx Smoking Status: Former smoker - Family Anes Hx Family Anes Hx: neg - N/A Family Hx Anesthesia Complications: NONE ANE Labs/Vital Signs - Vital Signs Vital Signs: reviewed preoperatively; see RN documention for details Blood Pressure: 159/66 Heart Rate: 54 Height: 173.99 cm Weight: 74.389 kg ANE Physical Exam - Airway Mallampati Score: Class 3 Mouth exam: poor dentition, dentures - Pulmonary Pulmonary: clear to auscultation - Cardiovascular Cardiovascular: regular rate and rhythym - ASA Status ASA Status: III ANE Anesthesia Plan Anesthesia Plan: GA w LMA
[2017-11-20] MEDS ORDERED: fentaNYL 100 MCG/2 ML INJ ONE (08:13)
[2017-11-20] MEDS ORDERED: PROPOFOL 200 MG/20 ML VIAL ONE ×2 (08:13)
[2017-11-20] MEDS ORDERED: PHENYLEPHRINE HCL 100 MCG/ML SYR ONE (08:31)
[2017-11-20] MEDS ORDERED: ONDANSETRON 4 MG/2 ML VIAL ONE (09:02)
[2017-11-20] MEDS ORDERED: oxyCODONE IR 5 MG TAB PO PRN (09:04)
[2017-11-20] MEDS ORDERED: LR 500 ML IV PRN (09:04)
[2017-11-20] MEDS ORDERED: PROMETHAZINE HCL 25 MG/ML INJ IVP PRN (09:04)
[2017-11-20] MEDS ORDERED: ALBUTEROL 3 ML DEYVIAL IH PRN (09:04)
[2017-11-20] MEDS ORDERED: fentaNYL 100 MCG/2 ML INJ IVP PRN (09:04)
[2017-11-20] MEDS ORDERED: NALOXONE HCL 0.4 MG/ML INJ IVP PRN ×2 (09:04)
--- NOTE | 2017-11-20 09:30 | POSTOPPROG ---
Post Op Note Date of Operation: 11/20/17 Surgeon: Mian Dhaliwal [employer] Director: Sophia Fofana Anesthesiologist: Lorin Anesthesia: GET(General Endotracheal) Pre-op Diagnosis: right elbow lateral epicondylitis Post-op Diagnosis: right elbow lateral epicondylitis Procedure: right elbow lateral epicondyle debridement with common extensor origin repa Inf/Abcess present in the surg proc area at time of surgery?: No Depth: Deep Incisional (Fascial) EBL: Minimal
--- NOTE | 2017-11-20 09:32 | POSTANESTH ---
Post Anesthetic Evaluation Cardiovascular Status: Normal, Stable Respiratory Status: Normal, Stable Level of Consciousness/Mental Status: Can Participate in Eval, Mildly Sleepy, Arousable Pain Control: Adequate, Prn Tx Ordered Nausea/Vomiting Control: Adequate, Prn Tx Ordered Complications Possibly Related to Anesthesia: None Noted
[2017-11-20 10:13] VITALS: TEMP 99
[2017-11-20 10:49] VITALS: BP 137/87; PULSE 67; RESP 14; O2SAT 92
--- NOTE | 2017-11-21 08:52 | GOP ---
[f rep st] OPERATIVE REPORT DATE OF OPERATION: 11/20/2017 SURGEON: Mian Dhaliwal MD PREOPERATIVE DIAGNOSIS: Right elbow lateral epicondylitis with partial tear of the common extensor o rigin. POSTOPERATIVE DIAGNOSIS: Right elbow lateral epicondylitis with partial tear of the common extensor origin. PROCEDURE PERFORMED: Right elbow lateral epicondyle debridement with repair of the common extensor o rigin. FINDINGS: ESTIMATED BLOOD LOSS: 0.2 cc. DESCRIPTION OF PROCEDURE: This is a very pleasant 87-year-old male who underwent a right elbow later al epicondyle debridement with repair of the common extensor origin. DIRECTOR OF PHARMACY: Sophia Fofana PA-C COMPLICATIONS: None. IMPLANTS: Biomet 2.9 mm JuggerKnot suture anchor, double loaded with #2 Maxon sutures. TOURNIQUET TIME: 52 minutes at 250 mmHg. /[id number]/MODL
== END 2017-11-20 12:49 | disposition home or self-care (01) ==
LOC: FSGY 06:45
PROVIDERS: ATTEND Orthopaedic Surgery Hand Surgery
PROC: 0LQ30ZZ Repair Right Upper Arm Tendon, Open Approach (ICD-10-PCS; principal; 2017-11-20 08:30)
DX: M77.11 Lateral epicondylitis, right elbow (principal); S56.511A Strain of other extensor muscle, fascia and tendon at forearm level, right arm, initial encounter
CPT/HCPCS: C1713; J0690; J2370; J2405; J2704; J3010

== ENCOUNTER → 2019-01-01 | Outpatient (CLI) | payer OTHER | LOC: BHFA 15:30 | PROVIDERS: ATTEND Internal Medicine Cardiovascular Disease | DX: R06.02 Shortness of breath (principal) ==